=== PATIENT | female | born 1995 | race Caucasian/White ===

== ENCOUNTER → 2021-12-19 08:49 | Outpatient (BNVA) | payer OTHER, SELFPAY | PROVIDERS: PCP Registered Nurse; Visit Provider Registered Nurse | DX: Z01.419 Encounter for gynecological examination (general) (routine) without abnormal findings (principal) | CPT/HCPCS: 87070; 87205; 88175 ==

== ENCOUNTER → 2022-04-08 10:13 | Outpatient (BNVA) | payer OTHER, SELFPAY | PROVIDERS: PCP Registered Nurse; Visit Provider Registered Nurse | DX: F41.9 Anxiety disorder, unspecified (principal); R00.0 Tachycardia, unspecified | CPT/HCPCS: 84443; 85025 ==

== ENCOUNTER → 2024-12-04 11:18 | Outpatient (BNVA) | payer OTHER, SELFPAY | PROVIDERS: PCP Registered Nurse; Visit Provider Registered Nurse | DX: Z13.6 Encounter for screening for cardiovascular disorders (principal); Z13.1 Encounter for screening for diabetes mellitus; Z01.419 Encounter for gynecological examination (general) (routine) without abnormal findings | CPT/HCPCS: 80061; 83036; 85025; 87070; 87205; 87624 ==

== ENCOUNTER 2024-12-14 13:14 | Outpatient (CLI) | payer OTHER, SELFPAY ==
--- NOTE | 2024-12-14 13:19 | US_ITS ---
WS: [id number] BILATERAL 3D TOMOSYNTHESIS DIGITAL DIAGNOSTIC MAMMOGRAPHY WITH CAD CLINICAL INFORMATION: N63.10 - Unspecified lump in the right breast, unspecifie... HISTORY: RIGHT breast lump COMPARISON: Baseline TECHNIQUE: Bilateral CC, MLO, and ML views. FINDINGS: Scattered fibroglandular densities bilaterally. Slightly nodular breast tissue bilaterally. No suspicious abnormalities deep to the palpable marker RIGHT breast. Ultrasound is pending. ULTRASOUND BREAST RIGHT TECHNIQUE: Ultrasound right breast focused area of concern. CLINICAL INFORMATION: N63.10 - Unspecified lump in the right breast, unspecifie... FINDINGS: Ultrasound RIGHT breast in the area of concern at the 10 o'clock position 3 cm from the nipple. Ovoid nodular density in the area of concern with a central echogenic hilum compatible with a small lymph node. No other suspicious abnormalities. Dense underlying parenchymal tissue in this area. US/US breast RT limited* [id number] IMPRESSION: DENSITY: There are scattered areas of fibroglandular density. BI-RADS: 2 - Benign. FOLLOW UP: Age 39 Recommend annual screening mammography age 39
--- NOTE | 2024-12-14 13:30 | MM_ITS ---
WS: [id number] BILATERAL 3D TOMOSYNTHESIS DIGITAL DIAGNOSTIC MAMMOGRAPHY WITH CAD CLINICAL INFORMATION: N63.10 - Unspecified lump in the right breast, unspecifie... HISTORY: RIGHT breast lump COMPARISON: Baseline TECHNIQUE: Bilateral CC, MLO, and ML views. FINDINGS: Scattered fibroglandular densities bilaterally. Slightly nodular breast tissue bilaterally. No suspicious abnormalities deep to the palpable marker RIGHT breast. Ultrasound is pending. ULTRASOUND BREAST RIGHT TECHNIQUE: Ultrasound right breast focused area of concern. CLINICAL INFORMATION: N63.10 - Unspecified lump in the right breast, unspecifie... FINDINGS: Ultrasound RIGHT breast in the area of concern at the 10 o'clock position 3 cm from the nipple. Ovoid nodular density in the area of concern with a central echogenic hilum compatible with a small lymph node. No other suspicious abnormalities. Dense underlying parenchymal tissue in this area. MM/MM diag BI tomosynthesis [id number] IMPRESSION: DENSITY: There are scattered areas of fibroglandular density. BI-RADS: 2 - Benign. FOLLOW UP: Age 39 Recommend annual screening mammography age 39
== END 2024-12-14 13:15 | disposition home or self-care (01) ==
LOC: RAD 13:15
PROVIDERS: PCP Registered Nurse; Visit Provider Registered Nurse
DX: N63.10 Unspecified lump in the right breast, unspecified quadrant (principal); R92.323 Mammographic fibroglandular density, bilateral breasts
CPT/HCPCS: 76642; 77062; G0279